=== PATIENT | female | born 1965 | race Two or more races ===

== ENCOUNTER 2022-10-25 12:03 | Emergency (ER) | payer MEDICAID, OTHER ==
[~2022-10-25] VITALS: Ht 160 cm; Wt 53.1 kg
[2022-10-25 13:36] VITALS: BP 157/88; PULSE 72; RESP 18; TEMP 98.1; O2SAT 98
== END 2022-10-25 13:59 | disposition home or self-care (01) ==
LOC: ER 12:03
DX: S00.03XA Contusion of scalp, initial encounter (principal); R51.9 Headache, unspecified; Z90.49 Acquired absence of other specified parts of digestive tract; W22.8XXA Striking against or struck by other objects, initial encounter; Y93.89 Activity, other specified; Y92.89 Other specified places as the place of occurrence of the external cause; Y99.8 Other external cause status
CPT/HCPCS: 70450